=== PATIENT | female | born 1975 | race Asian ===

== ENCOUNTER 2020-02-25 06:21 | Inpatient (IN) | payer OTHER ==
[~2020-02-25] VITALS: Ht 154.9 cm; Wt 79.4 kg
[2020-02-25] VITALS (7 sets, daily range): BP systolic 125–154; BP diastolic 70–89
--- NOTE | 2020-02-25 06:40 | NUR ---
ED Nurse Note: pt walked into ED from home c/o hemoptysis since this AM, pt had forceful cough and dark red clots came out. Pt states she had uterine fibroid embolization surgery as outpt yesterday. Pt denies chest pain, denies, sob. Pt does not take blood thinners. Unknown if pt was intubated for surgery.
[2020-02-25] MEDS ORDERED: Omnipaque-300 100ml vial INJ PRN (06:45)
--- NOTE | 2020-02-25 06:52 | Emergency Room Report ---
History of Present Illness General Chief Complaint: General Complaint Source: Patient Present Illness HPI 44-year-old female postop day 1 from uterine artery embolization for bleeding fibroids sent by [employer] Dr. Jarrett for patient vomiting blood x 3 prior to arrival Patient quantifies the amount of blood as "a little". Last PO intake was this morning, yogurt. Denies chest pain, shortness of breath, nausea, diarrhea, hemoptysis, leg swelling, back pain, abdominal pain, flank pain or other symptoms The patient's symptoms were gradual onset, severity was moderate, duration since 1 day. Quality: bright red Past medical history: Denies Past surgical history: uterine artery embolization Smoking: Denies Alcohol use: Denies Drug use: Denies Review of systems: CONST: No fevers or chills, No night sweats PULMONARY: No productive cough, No shortness of breath CARDIAC: No chest pain, No palpitations GI: No vomiting, No diarrhea , No melena_or_BRBPR : No dysuria, No hematuria, No discharge NEURO: No new_focal_weakness_or_numbness, No confusion, No vision changes 14 point Review of Systems is otherwise negative except per HPI Physical Exam: GENERAL: Awake_alert_ nontoxic, no acute distress Spo2 98% on RA -normal EYES: Extraocular muscles are intact. Conjunctivae clear. Lids without swelling ENT: External nose and ear normal_in_appearance. Oropharynx clear. Head_atraumatic, Moist_oral_mucosa NECK: No JVD. No meningismus. No thyromegaly. Supple. Trachea midline RESP: Normal respiratory effort. Symmetric rise. No stridor. Clear_to _auscultation_No_rales_No_wheezes CARDIAC: Regular rate and regular rhytm. No_significant pedal edema. ABDOMEN: Soft. Nondistended. Nontender_No_rebound_or_guarding. MSK: Normal muscle tone, without rigidity. Extremities without asymmetric deformity or swelling. SKIN: Warm and dry. No visible cyanosis or pallor NEUROLOGIC: Alert, oriented x3. Motor_and_sensation_grossly_intact. No truncal ataxia. Gait_normal Psych: Normal mood and affect, normal judgment and insight - COORDINATION OF CARE Case was discussed with: Patient , Patient's Physician Any labs and imaging that were ordered were interpreted as part of the medical decision making: Critical Care Statement Organ systems at risk include: cardiac / circulatory / GI Critical care performed for 45 minutes. Time is exclusive of separately billable procedures. Time includes: direct patient care, continuous monitoring and multiple patient reassessment, coordination of patient care, review of patient's medical records, medical consultation, family consultation regarding treatment decisions and documentation of patient care. Medical Decision Making/Plan: Differential diagnosis includes upper GI bleed from bleeding peptic ulcer, bleeding duodenal ulcer, gastritis, esophageal varices, gastric varices, among others. CTA showed possible GI bleed. No PE. Abdominal exam is non tender and non peritoneal. Patient remains hemodynamically stable and sleeping. Given the possibility of a bleeding peptic ulcer, Protonix IV was immediately started. Rocephin given. Gastroenterology on-call was consulted and will evaluate the patient for endoscopy. Dr Lazo agrees with current ED management and will take patient to GI lab for endoscopy. Because the patients hemoglobin is stable, emergent transfusion was not started; however, the patient will need to be admitted for serial hemoglobin checks, and if downtrending, transfusion may be indicated at a later time. Patient is protecting their airway, no active vomiting, no need for NG tube or i ntubation at this time. The patient is currently hemodynamically stable, and stable for transfer to the floor at this time. I spoke with Dr. Seymour, and reviewed the patients presentation, workup, results, and treatment. They will admit the patient for further care and evaluation, and assume care of the patient at this time. Allergies: Coded Allergies: No Known Allergies (Unverified , 02/25/20) COVID-19 Screening Contact w/high risk pt: No Experienced COVID-19 symptoms?: No COVID-19 Testing performed GOVERNMENT INSTRUCTOR: No COVID-19 Screening: Negative COVID-19 COVID-19 Testing Source: [employer] Patient History Now: No Physical Exam Vital Signs Date Time Temp Pulse Resp B/P (MAP) Pulse Ox O2 Delivery O2 Flow Rate FiO2 02/25/20 06:23 98.1 74 20 139/70 (93) 98 Sp02 EP Interpretation: reviewed, normal Medical Decision Making Diagnostic Impression: Primary Impression: Hematemesis Additional Impression: Hypokalemia EKG Diagnostic Results Troponin ordered: Yes SILVIA Scribe Text 12-lead EKG (interpreted by me) Time: 0657 Indication: Rhythm analysis Tracing visualized and Interpreted by me. Rhythm: Normal sinus rhythm Rate: 70 bpm QTc: 373 Morphology: No_significant_ST_elevations_or_depressions, No STEMI Impression: Normal_sinus_rhythm_without_significant_abnormality CT/MRI/US Diagnostic Results CT/MRI/US Diagnostic Results : Impression CTA Chest Abd/Pel w Contrast INDICATION: Vomiting blood, history of recent uterine fibroid embolization COMPARISON: FINDINGS: Vascular: No evidence of thoracic aortic aneurysm or dissection. Normal caliber and branching anatomy of the great neck vessels. Exam is not optimized for exclusion of pulmonary embolus, but the pulmonary arteries are well-opacified and no findings to suggest acute pulmonary embolus are evident. No evidence of pulmonary arterial or right ventricular dilatation. Patent nonstenotic upper abdominal visceral vessels. Patent nonstenotic bilateral iliac arteries and common femoral arteries. No evidence of dissection or a neurysm. There is what appears to be dense liquid material within the lumen of the ascending and transverse colon. This is fairly abundant, much more abundant than would be expected from contrast extravasation from the current study. No definite active extravasation of currently injected contrast is evident. The bilateral uterine arteries are enlarged. Chest: There are bilateral atelectatic changes. No infiltrates, effusions, masses, or nodules. The heart is upper limits normal in size. No pericardial effusion. No mediastinal or hilar mass or adenopathy. No axillary or chest wall mass or adenopathy. Abdomen pelvis: Distal esophagus, stomach, duodenum are unremarkable. No small bowel distention. No free or loculated intraperitoneal gas is evident. No evidence of diverticulosis or diverticulitis. There is evidence of prior cholecystectomy. The liver, bile ducts, pancreas, sp rajani, adrenals, kidneys are unremarkable. No retroperitoneal or mesenteric mass or adenopathy. Uterus is enlarged, demonstrates multiple markedly hyperattenuating masses. A few gas bubbles are seen within the uterus. There is a 2.7 cm right ovarian cyst. A gas bubble is seen within the bladder IMPRESSION: Dense liquid material, presumably contrast, is seen within the ascending and transverse colon. This is much more abundant than would be expected from contrast extravasation from the current study. Given stated clinical history of GI bleed, this could conceivably represent contrast had extravasated into the GI tract during prior uterine fibroid embolization procedure. No evidence of active GI bleed No acute thoracic or abdominal vascular pathology Enlarged uterus with multiple hyperattenuating masses, presumably fibroids that have retained contrast from prior embolization procedure. Gas bubble within the bladder, probably indicates recent instrumentation. Last Vital Signs Date Time Temp Pulse Resp B/P (MAP) Pulse Ox O2 Delivery O2 Flow Rate FiO2 02/25/20 06:40 74 20 02/25/20 06:40 98.1 139/70 98 Disposition: ADMITTED INPATIENT Admit Decision Time: 10:00 Condition: Stable Maisha Shaffer D.O. Feb 25, 2020 06:52
[2020-02-25] MEDS ORDERED: Pantoprazole Inj IVP ONE (07:00)
--- NOTE | 2020-02-25 07:03 | NUR ---
ED Nurse Note: urine and blood sent to lab
--- NOTE | 2020-02-25 07:14 | NUR ---
HAND-OFF: Report given to ERLINDA Reardon.
[2020-02-25] MEDS ORDERED: Acetaminophen 500mg (ES) tab ORAL ONE (07:15)
[2020-02-25 07:49] LABS: APPEARANCE,URINE CLEAR; BILIRUBIN, URINE NEGATIVE (NEGATIVE); COLOR,URINE PALE YELLOW; GLUCOSE, URINE (UA) NEGATIVE (NEGATIVE); KETONES,URINE NEGATIVE (NEGATIVE); LEUKOCYTE ESTERASE ,URINE NEGATIVE (NEGATIVE); NITRITE,URINE NEGATIVE (NEGATIVE); PH,URINE 7 (4.5-8.0); PROTEIN,URINE NEGATIVE (NEGATIVE); UROBILINOGEN,URINE NORMAL MG/DL (0.0-1.0)
[2020-02-25 07:52] LABS: EOSINOPHILS % (AUTO) 0.2 % (0.0-3.0); HEMATOCRIT 37.1 % (37.0-47.0); HEMOGLOBIN 12.1 G/DL (12.0-16.0); LYMPHOCYTES % (AUTO) 24.3 % (20.0-45.0); MEAN CORPUSCULAR VOLUME 89 FL (80-99); MONOCYTES % (AUTO) 6.3 % (1.0-10.0); NEUTROPHILS % (AUTO) 68.2 % (45.0-75.0); PLATELET COUNT 321 K/UL (150-450); RED BLOOD COUNT 4.16 M/UL (4.20-5.40); RED CELL DISTRIBUTION WIDTH 12.3 % (11.6-14.8); WHITE BLOOD COUNT 11.3 K/UL (4.8-10.8)
[2020-02-25 08:00] LABS: ANION GAP 4 mmol/L (5-15); BLOOD UREA NITROGEN 6 mg/dL (7-18); CALCIUM 8.6 MG/DL (8.5-10.1); CARBON DIOXIDE 30 MMOL/L (21-32); CHLORIDE 104 MMOL/L (98-107); CREATININE 0.8 MG/DL (0.55-1.30); POTASSIUM 3.2 MMOL/L (3.5-5.1); SODIUM 138 MMOL/L (136-145)
[2020-02-25 08:09] LABS: ALANINE AMINOTRANSFERASE 30 U/L (12-78); ALBUMIN 2.8 G/DL (3.4-5.0); ALBUMIN/GLOBULIN RATIO 0.7 (1.0-2.7); ALKALINE PHOSPHATASE 92 U/L (46-116); ASPARTATE AMINO TRANSFERASE 19 U/L (15-37); BILIRUBIN,TOTAL 0.6 MG/DL (0.2-1.0)
--- NOTE | 2020-02-25 08:18 | NUR ---
ED Nurse Note: received pt from ERLINDA Brito for continuity of care. Pt on bed, awake and alert x4, no acute distress noted.
--- NOTE | 2020-02-25 08:20 | NUR ---
ED Nurse Note: Pt taken to CT on stable condition.
[2020-02-25 08:25] LABS: INR 1.2 (0.9-1.1)
--- NOTE | 2020-02-25 08:40 | NUR ---
ED Nurse Note: Pt returned from CT
--- NOTE | 2020-02-25 09:34 | Diagnostic Imaging Report ---
INDICATION: Vomiting blood, history of recent uterine fibroid embolization TECHNIQUE: IV administration nonionic contrast. Arterial phase spiral acquisitions obtained through the chest, abdomen, and pelvis Multiplanar reconstructions were generated. Total dose length product mGycm. CTDIvol(s) mGy. Radiation dose was minimized using automated exposure control COMPARISON: FINDINGS: Vascular: No evidence of thoracic aortic aneurysm or dissection. Normal caliber and branching anatomy of the great neck vessels. Exam is not optimized for exclusion of pulmonary embolus, but the pulmonary arteries are well-opacified and no findings to suggest acute pulmonary embolus are evident. No evidence of pulmonary arterial or right ventricular dilatation. Patent nonstenotic upper abdominal visceral vessels. Patent nonstenotic bilateral iliac arteries and common femoral arteries. No evidence of dissection or aneurysm. There is what appears to be dense liquid material within the lumen of the ascending and transverse colon. This is fairly abundant, much more abundant than would be expected from contrast extravasation from the current study. No definite active extravasation of currently injected contrast is evident. The bilateral uterine arteries are enlarged. Chest: There are bilateral atelectatic changes. No infiltrates, effusions, masses, or nodules. The heart is upper limits normal in size. No pericardial effusion. No mediastinal or hilar mass or adenopathy. No axillary or chest wall mass or adenopathy. Abdomen pelvis: Distal esophagus, stomach, duodenum are unremarkable. No small bowel distention. No free or loculated intraperitoneal gas is evident. No evidence of diverticulosis or diverticulitis. There is evidence of prior cholecystectomy. The liver, bile ducts, pancreas, spleen, adrenals, kidneys are unremarkable. No retroperitoneal or mesenteric mass or adenopathy. Uterus is enlarged, demonstrates multiple markedly hyperattenuating masses. A few gas bubbles are seen within the uterus. There is a 2.7 cm right ovarian cyst. A gas bubble is seen within the bladder IMPRESSION: Dense liquid material, presumably contrast, is seen within the ascending and transverse colon. This is much more abundant than would be expected from contrast extravasation from the current study. Given stated clinical history of GI bleed, this could conceivably represent contrast had extravasated into the GI tract during prior uterine fibroid embolization procedure. No evidence of active GI bleed No acute thoracic or abdominal vascular pathology Enlarged uterus with multiple hyperattenuating masses, presumably fibroids that have retained contrast from prior embolization procedure. Gas bubble within the bladder, probably indicates recent instrumentation. Findings discussed by phone with Dr. Shaffer in the emergency room at the time of interpretation The CT scanner at [facility] is accredited by the [employer] and the scans are performed using protocols designed to limit radiation exposure to as low as reasonably achievable to attain images of sufficient resolution adequate for diagnostic evaluation.
--- NOTE | 2020-02-25 10:06 | NUR ---
ED Nurse Note: Dr. Lazo at bedside.
--- NOTE | 2020-02-25 10:20 | NUR ---
ED Nurse Note: rapid covid sent to lab
--- NOTE | 2020-02-25 10:34 | General Progress Note ---
Subjective ROS Limited/Unobtainable: Yes Allergies: Coded Allergies: No Known Allergies (Unverified , 02/25/20) Objective Last 24 Hour Vital Signs Date Time Temp Pulse Resp B/P (MAP) Pulse Ox O2 Delivery O2 Flow Rate FiO2 02/25/20 06:40 74 20 02/25/20 06:40 98.1 74 20 139/70 98 02/25/20 06:23 98.1 74 20 139/70 (93) 98 Laboratory Tests 02/25/20 06:50: White Blood Count 11.3H, Red Blood Count 4.16L, Hemoglobin 12.1, Hematocrit 37.1, Mean Corpuscular Volume 89, Mean Corpuscular Hemoglobin 29.0, Mean Corpuscular Hemoglobin Concent 32.6, Red Cell Distribution Width 12.3, Platelet Count 321, Mean Platelet Volume 7.2, Neutrophils (%) (Auto) 68.2, Lymphocytes (%) (Auto) 24.3, Monocytes (%) (Auto) 6.3, Eosinophils (%) (Auto) 0.2, Basophils (%) (Auto) 1.0, Prothrombin Time 12.7H, Prothromb Time International Ratio 1.2H, Activated Partial Thromboplast Time 26, Urine Color Pale yellow, Urine Appearance Clear, Urine pH 7, Urine Specific [place] 1.005, Urine Protein Negative, Urine Glucose (UA) Negative, Urine Ketones Negative, Urine Blood 3+H, Urine Nitrite Negative, Urine Bilirubin Negative, Urine Urobilinogen Normal, Urine Leukocyte Esterase Negative, Urine RBC 0-2, Urine WBC 0-2, Urine Squamous Epithelial Cells Occasional, Urine Bacteria Occasional, Sodium Level 138, Potassium Level 3.2L, Chloride Level 104, Carbon Dioxide Level 30, Anion Gap 4L, Blood Urea Nitrogen 6L, Creatinine 0.8, Estimat Glomerular Filtration Rate > 60, Glucose Level 103, Calcium Level 8.6, Total Bilirubin 0.6, Aspartate Amino Transf (AST/SGOT) 19, Alanine Aminotransferase (ALT/SGPT) 30, Alkaline Phosphatase 92, Troponin I 0.016, Total Protein 6.8, Albumin 2.8L, Globulin 4.0, Albumin/Globulin Ratio 0.7L, Lipase 128 Height (Feet): 5 Height (Inches): 1.00 Weight (Pounds): 175 General Appearance: no apparent distress EENT: normal ENT inspection Neck: supple Cardiovascular: normal rate Respiratory/Chest: decreased breath sounds Abdomen: normal bowel sounds, non tender, soft Extremities: non-tender Assessment/Plan Assessment/Plan: hematemesis post uterine fibroid ablation CT and labs reviewed ppi fu H&H possible EGD for today Ibrahima Lazo MD Feb 25, 2020 10:34
--- NOTE | 2020-02-25 11:58 | NUR ---
ED Nurse Note: Report given to Shala COFFEY of med surg unit.
[2020-02-25] MEDS ORDERED: ABILIFY10 MG ORAL (12:04)
[2020-02-25] MEDS ORDERED: COLACE100 MG ORAL (12:04)
[2020-02-25] MEDS ORDERED: TRAMADOL HCL50 MG ORAL (12:04)
[2020-02-25] MEDS ORDERED: AUGMENTIN 875-1 EAC1 ORAL (12:04)
[2020-02-25] MEDS ORDERED: ONDANSETRON ODT8 MG ORAL (12:04)
--- NOTE | 2020-02-25 12:25 | NUR ---
NURSE NOTES: RECIEVED PT. FROM ER ACCOMPANIED BY NSG STAFF AWAKE AND ALERT V/S TAKEN AND RECORDED.MADE COMFOTABLE IN BED .CALL LIGHT WITHIN REACH @ ALL TIMES.PLAN OF CARE DISCUSSED VERBALIZES UNDERSTANDING.
--- NOTE | 2020-02-25 12:27 | NUR ---
ED Nurse Note: Pt was transferred to [facility] unit under the care of Dr. Recinos. Report was given to Shala COFFEY in MS unit. Pt was transferred on stable condition, all belongings sent with pt. Family aware of pt transfer.
--- NOTE | 2020-02-25 12:45 | NUR ---
NURSE NOTES: TO GI LAB [facility]IA [facility] FOR EGD W/ POSSIBLE BIOPSY CONSENT SIGNED.
[2020-02-25] MEDS ORDERED: NS 500ML IVPB ONE (12:52)
--- NOTE | 2020-02-25 12:58 | History and Physical ---
Jia Goss GERONTOLOGICAL NURSE PRACTITIONER 02/25/20 1258: History of Present Illness General Date patient seen: Feb 25, 2020 Time patient seen: 11:30 Reason for Hospitalization: General Complaint Present Illness HPI 44 years old female with past medical history of uterine fibroids, bipolar disorder, undergone uterine artery embolization on 02/23 Patient was vomiting snall amount of blood x3 prior to arrival. She denied black stools. She denied abdominal pain. No chest pain or shortness of breath. No bowel movement since surgery. No hemoptysis. No leg swelling. Upon evaluation vital signs were stable. Rapid COVID-19 was negative. Laboratory work-up revealed mild leukocytosis WBC 11.3 , stable hemoglobin 12.1 and hematocrit 37.1, platelet count 321 Potassium 3.2. Otherwise stable electrolytes and renal parameters. Troponin negative Urinalysis revealed +3 blood , but no evidence of urinary tract infection. CT scan of the chest revealed bilateral atelectatic changes. No infiltrates, effusion, masses or nodules. CT of the abdomen and pelvis revealed dense liquid material , presumably contrast within the ascending and transverse colon , possibly representing contrast extravasated into the GI tract during prior uterine fibroid embolization procedure. No evidence of active GI bleeding. No acute thoracic or abdominal vascular pathology. Enlarged uterus with multiply hyperattenuated masses , presumably fibroids . In emergency department patient received antiemetic , Protonix and admitted for further management to medical surgical floor. PMH: uterine fibroids, bipoalr disorder Past surgery: cholecystectomy, left ankle surgery 2 to sport injury, [place] 02/23 Family hx: mother: multiple myeloma, ; father: diabetes and heart failure- Social hx: denies smoking, ETOH abuse, illicit drug use. Works as a sales and marketing analyst in [employer] Allergy: NKDA Medications: reviewed Allergies: Coded Allergies: No Known Allergies (Unverified , 02/25/20) COVID-19 Screening Contact w/high risk pt: No Recent Travel to affected area: No Experienced COVID-19 symptoms?: No Medication History Scheduled Amoxicillin/Potassium Clav 875-125* (Augmentin 875-125 Tablet*), 1 TAB ORAL TWICE A DAY, (Reported) Aripiprazole* (Abilify*), 10 MG ORAL DAILY, (Reported) Docusate Sodium* (Colace*), 100 MG ORAL DAILY, (Reported) Scheduled PRN Ondansetron Odt* (Zofran Odt*), 8 MG ORAL Q12H PRN for Nausea & Vomiting, (Reported) Tramadol Hcl* (Ultram*), 50 MG ORAL Q6H PRN for For Pain, (Reported) Patient History Healthcare decision maker Resuscitation status Full code Advanced Directive on File Review of Systems Constitutional: Reports: no symptoms Eye: Reports: no symptoms ENT: Reports: no symptoms Respiratory: Reports: no symptoms Cardiovascular: Reports: no symptoms Gastrointestinal: Reports: see HPI Genitourinary: Reports: no symptoms Musculoskeletal: Reports: no symptoms Skin: Reports: no symptoms Psychiatric: Reports: no symptoms Neurological: Reports: no symptoms Endocrine: Reports: no symptoms Hematologic/Lymphatic: Reports: no symptoms Physical Exam General Appearance: WD/WN, no apparent distress, alert, obese - AA female Lines, tubes and drains: peripheral HEENT: normocephalic, atraumatic, anicteric, mucous membranes moist, PERRL Neck: non-tender, supple Respiratory/Chest: lungs clear, no respiratory distress, no accessory muscle use Cardiovascular/Chest: normal rate Abdomen: normal bowel sounds, soft Extremities: normal range of motion, non-tender Skin Exam: normal pigmentation, warm/dry Neurologic: volunteer assistant II-XII grossly normal, no motor/sensory deficits, alert, oriented x 3, responsive Musculoskeletal: normal muscle bulk Last 24 Hour Vital Signs Date Time Temp Pulse Resp B/P (MAP) Pulse Ox O2 Delivery O2 Flow Rate FiO2 02/25/20 07:47 98.1 02/25/20 06:40 74 20 02/25/20 06:40 98.1 74 20 139/70 98 02/25/20 06:23 98.1 74 20 139/70 (93) 98 Laboratory Tests Test 02/25/20 06:50 White Blood Count 11.3 K/UL (4.8-10.8) H Red Blood Count 4.16 M/UL (4.20-5.40) L Hemoglobin 12.1 G/DL (12.0-16.0) Hematocrit 37.1 % (37.0-47.0) Mean Corpuscular Volume 89 FL (80-99) Mean Corpuscular Hemoglobin 29.0 PG (27.0-31.0) Mean Corpuscular Hemoglobin Concent 32.6 G/DL (32.0-36.0) Red Cell Distribution Width 12.3 % (11.6-14.8) Platelet Count 321 K/UL (150-450) Mean Platelet Volume 7.2 FL (6.5-10.1) Neutrophils (%) (Auto) 68.2 % (45.0-75.0) Lymphocytes (%) (Auto) 24.3 % (20.0-45.0) Monocytes (%) (Auto) 6.3 % (1.0-10.0) Eosinophils (%) (Auto) 0.2 % (0.0-3.0) Basophils (%) (Auto) 1.0 % (0.0-2.0) Prothrombin Time 12.7 SEC (9.30-11.50) H Prothromb Time International Ratio 1.2 (0.9-1.1) H Activated Partial Thromboplast Time 26 SEC (23-33) Urine Color Pale yellow Urine Appearance Clear Urine pH 7 (4.5-8.0) Urine Specific [place] 1.005 (1.005-1.035) Urine Protein Negative (NEGATIVE) Urine Glucose (UA) Negative (NEGATIVE) Urine Ketones Negative (NEGATIVE) Urine Blood 3+ (NEGATIVE) H Urine Nitrite Negative (NEGATIVE) Urine Bilirubin Negative (NEGATIVE) Urine Urobilinogen Normal MG/DL (0.0-1.0) Urine Leukocyte Esterase Negative (NEGATIVE) Urine RBC 0-2 /HPF (0 - 2) Urine WBC 0-2 /HPF (0 - 2) Urine Squamous Epithelial Cells Occasional /LPF Urine Bacteria Occasional /HPF (NONE) Sodium Level 138 MMOL/L (136-145) Potassium Level 3.2 MMOL/L (3.5-5.1) L Chloride Level 104 MMOL/L (98-107) Carbon Dioxide Level 30 MMOL/L (21-32) Anion Gap 4 mmol/L (5-15) L Blood Urea Nitrogen 6 mg/dL (7-18) L Creatinine 0.8 MG/DL (0.55-1.30) Estimat Glomerular Filtration Rate > 60 mL/min (>60) Glucose Level 103 MG/DL (74-106) Calcium Level 8.6 MG/DL (8.5-10.1) Total Bilirubin 0.6 MG/DL (0.2-1.0) Aspartate Amino Transf (AST/SGOT) 19 U/L (15-37) Alanine Aminotransferase (ALT/SGPT) 30 U/L (12-78) Alkaline Phosphatase 92 U/L (46-116) Troponin I 0.016 ng/mL (0.000-0.056) Total Protein 6.8 G/DL (6.4-8.2) Albumin 2.8 G/DL (3.4-5.0) L Globulin 4.0 g/dL Albumin/Globulin Ratio 0.7 (1.0-2.7) L Lipase 128 U/L (73-393) Microbiology Date/Time Source Procedure Growth Status 02/25/20 10:17 Nasopharynx SARS-CoV-2 RdRp Gene Assay - Final Complete Height (Feet): 5 Height (Inches): 1.00 Weight (Pounds): 175 Medications Current Medications Medications (Trade) Dose Ordered Sig/Aniket Route PRN Reason Start Time Stop Time Status Last Admin Dose Admin Iohexol (OMNIPAQUE-300 100ml) 100 ml NOW PRN INJ Radiology Procedure 02/25/20 06:45 02/27/20 06:44 Pantoprazole (Protonix) 40 mg Q12HR IVP 02/25/20 21:00 03/26/20 20:59 Assessment/Plan Assessment/Plan: ASSESSMENT Hematemesis s/p [place] 2 uterine fibroids Leukocytosis, probably reactive Bipolar disorder PLAN OF CARE MS NPO for EGD IVF a/emetic prn GI eval PPI monitor pain management bowel regimen ambulate as tolerated resume home meds supportive care case discussed and evaluated by supervising physician Carloz Guan MD 02/25/20 0727: History of Present Illness General Reason for Hospitalization: General Complaint Present Illness Allergies: Coded Allergies: No Known Allergies (Unverified , 02/25/20) Medication History Scheduled Amoxicillin/Potassium Clav 875-125* (Augmentin 875-125 Tablet*), 1 TAB ORAL TWICE A DAY, (Reported) Aripiprazole* (Abilify*), 10 MG ORAL DAILY, (Reported) Docusate Sodium* (Colace*), 100 MG ORAL DAILY, (Reported) Scheduled PRN Ondansetron Odt* (Zofran Odt*), 8 MG ORAL Q12H PRN for Nausea & Vomiting, (Reported) Tramadol Hcl* (Ultram*), 50 MG ORAL Q6H PRN for For Pain, (Reported) Jia Goss NP Feb 25, 2020 12:58 Carloz Guan MD Feb 25, 2020 15:57
[2020-02-25] MEDS ORDERED: Meperidine 25mg/1ml Inj (FOR RIGORS ONLY) IV PRN (13:00)
[2020-02-25] MEDS ORDERED: Labetalol 5mg/ml 20ml vial IV PRN (13:00)
[2020-02-25] MEDS ORDERED: Midazolam 2mg/2ml Inj IVP PRN (13:00)
[2020-02-25] MEDS ORDERED: HYDROcodone/Acetamin 5/325 tab ORAL PRN ×2 (13:00→13:30)
[2020-02-25] MEDS ORDERED: Hydromorphone 0.5mg/0.5ml inj IVP PRN (13:00)
[2020-02-25] MEDS ORDERED: LORazepam Inj 2mg/ml 1ml IV PRN (13:00)
[2020-02-25] MEDS ORDERED: DiphenhydrAMINE 50mg/ml Inj IVP PRN (13:00)
[2020-02-25] MEDS ORDERED: oxyCODONE HCL/Acetaminophen 5/325mg ORAL PRN (13:00)
[2020-02-25] MEDS ORDERED: Atropine Sulfate 0.4mg/ml inj IVP PRN (13:00)
[2020-02-25] MEDS ORDERED: Lidocaine 1% MPF 10mg/ml 5ml ONE (13:00)
[2020-02-25] MEDS ORDERED: HYDROcodone/Acetamin 7.5/325 tab ORAL PRN (13:00)
[2020-02-25] MEDS ORDERED: Ketorolac 30mg Inj IV PRN ×2 (13:00)
[2020-02-25] MEDS ORDERED: fentaNYL 100 mcg/2 mL IV PRN (13:00)
[2020-02-25] MEDS ORDERED: LR 1000ml ONE (13:00)
[2020-02-25] MEDS ORDERED: LR 1000ml 1,000 ML IVLG SCH (13:00)
--- NOTE | 2020-02-25 13:16 | Anethesia Preoperative Eval ---
Anesthesia Pre-op PMH/ROS General Date of Evaluation: Feb 25, 2020 Time of Evaluation: 12:41 Anesthesiologist: Greta ASA Score: ASA 3 Mallampati Score Class I : Soft palate, uvula, fauces, pillars visible Class II: Soft palate, uvula, fauces visible Class III: Soft palate, base of uvula visible Class IV: Only hard plate visible Mallampati Classification: Class II Surgeon: Clifton Diagnosis: abd pain Surgical Procedure: EGD Anesthesia History: none Family History: no anesthesia problems Allergies: Coded Allergies: No Known Allergies (Unverified , 02/25/20) Medications: see eMAR Patient NPO?: Yes Past Medical History Cardiovascular: Reports: HTN Hematology/Immune: Reports: anemia Other: obesity - BMI 35 PSxH Narrative: Uterine Embolism Anesthesia Pre-op Phys. Exam Physician Exam Last Vital Signs Date Time Temp Pulse Resp B/P (MAP) Pulse Ox O2 Delivery O2 Flow Rate FiO2 02/25/20 07:47 98.1 02/25/20 06:40 74 20 02/25/20 06:40 139/70 98 Constitutional: NAD Neurologic: CN 2-12 intact Cardiovascular: RRR Respiratory: CTA Gastrointestinal: S/NT/ND Airway Exam Mallampati Score: Class II MO: limited ROM: limited Teeth: intact Anesthesia Pre-op A/P Labs Hematology Test 02/25/20 06:50 White Blood Count 11.3 K/UL (4.8-10.8) H Red Blood Count 4.16 M/UL (4.20-5.40) L Hemoglobin 12.1 G/DL (12.0-16.0) Hematocrit 37.1 % (37.0-47.0) Mean Corpuscular Volume 89 FL (80-99) Mean Corpuscular Hemoglobin 29.0 PG (27.0-31.0) Mean Corpuscular Hemoglobin Concent 32.6 G/DL (32.0-36.0) Red Cell Distribution Width 12.3 % (11.6-14.8) Platelet Count 321 K/UL (150-450) Mean Platelet Volume 7.2 FL (6.5-10.1) Neutrophils (%) (Auto) 68.2 % (45.0-75.0) Lymphocytes (%) (Auto) 24.3 % (20.0-45.0) Monocytes (%) (Auto) 6.3 % (1.0-10.0) Eosinophils (%) (Auto) 0.2 % (0.0-3.0) Basophils (%) (Auto) 1.0 % (0.0-2.0) Coagulation Test 02/25/20 06:50 Prothrombin Time 12.7 SEC (9.30-11.50) H Prothromb Time International Ratio 1.2 (0.9-1.1) H Activated Partial Thromboplast Time 26 SEC (23-33) Chemistry Test 02/25/20 06:50 Sodium Level 138 MMOL/L (136-145) Potassium Level 3.2 MMOL/L (3.5-5.1) L Chloride Level 104 MMOL/L (98-107) Carbon Dioxide Level 30 MMOL/L (21-32) Anion Gap 4 mmol/L (5-15) L Blood Urea Nitrogen 6 mg/dL (7-18) L Creatinine 0.8 MG/DL (0.55-1.30) Estimat Glomerular Filtration Rate > 60 mL/min (>60) Glucose Level 103 MG/DL (74-106) Calcium Level 8.6 MG/DL (8.5-10.1) Total Bilirubin 0.6 MG/DL (0.2-1.0) Aspartate Amino Transf (AST/SGOT) 19 U/L (15-37) Alanine Aminotransferase (ALT/SGPT) 30 U/L (12-78) Alkaline Phosphatase 92 U/L (46-116) Troponin I 0.016 ng/mL (0.000-0.056) Total Protein 6.8 G/DL (6.4-8.2) Albumin 2.8 G/DL (3.4-5.0) L Globulin 4.0 g/dL Albumin/Globulin Ratio 0.7 (1.0-2.7) L Lipase 128 U/L (73-393) Risk Assessment & Plan Assessment: ASA 3 Plan: TIVA Status Change Before Surgery: Jah Costa MD Feb 25, 2020 13:16
--- NOTE | 2020-02-25 13:17 | Immediate Post-Op Evaluation ---
Immediate Post-Op Evalulation Immediate Post-Op Evalulation Procedure: EGD Date of Evaluation: Feb 25, 2020 Time of Evaluation: 13:49 IV Fluids: 300 LR Blood Products: 0 Estimated Blood Loss: 2 Urinary Output: 0 Blood Pressure Systolic: 154 Blood Pressure Diastolic: 89 Pulse Rate: 61 Respiratory Rate: 16 O2 Sat by Pulse Oximetry: 100 Temperature (Fahrenheit): 97.2 Pain Score (1-10): 1 Nausea: No Vomiting: No Complications 0 Patient Status: awake, reacts, patent, none Hydration Status: adequate Jah Hernandes MD Feb 25, 2020 13:17
--- NOTE | 2020-02-25 13:18 | 48 Hour Post Anesthesia Eval ---
Post Anesthesia Evaluation Procedure: EGD Date of Evaluation: Feb 25, 2020 Time of Evaluation: 15:54 Blood Pressure Systolic: 153 0: 87 Pulse Rate: 62 Respiratory Rate: 18 Temperature (Fahrenheit): 98 O2 Sat by Pulse Oximetry: 100 Airway: patent Nausea: No Vomiting: No Pain Intensity: 1 Hydration Status: adequate Cardiopulmonary Status: Stable Mental Status/LOC: patient returned to baseline Follow-up Care/Observations: 0 Post-Anesthesia Complications: 0 Follow-up care needed: N/A Jah Hernandes MD Feb 25, 2020 13:18
[2020-02-25] MEDS ORDERED: Morphine Sulfate 2mg/ml Inj(IV/IM USE ONLY) IVP PRN (13:30)
--- NOTE | 2020-02-25 13:47 | Endoscopy Procedure Note ---
Endoscopy Procedure Note General Indication for Procedure: gib Operative Findings/Diagnosis: gastittis Specimen: yes Pt Tolerated Procedure Well: Yes Estimated Blood Loss: none Anesthesia Anesthesiologist: susan Anesthesia: MAC Inserted Devices Implant(s) used?: No GI Core Measures 50 yrs or older w/o bx or poly: Not Applicable 10yrs. F/U recommended: Not Applicable Ibrahima Lazo MD Feb 25, 2020 13:47
--- NOTE | 2020-02-25 14:03 | NUR ---
NURSE NOTES: RECIEVED PT. FROM GI LAB VIA [facility] ALERT AND ORIENTED.V/S TAKEN AND RECORDED.DIET SERVED .NEEDS ATTENDED.
--- NOTE | 2020-02-25 14:14 | Procedure Note ---
DATE OF PROCEDURE: 02/25/2020 SURGEON: Ibrahima Lazo MD PROCEDURE: Upper endoscopy with biopsy. ANESTHESIOLOGIST: Jah Hernandes MD. INSTRUMENT: Olympus adult flexible upper endoscope. INDICATION: Upper GI bleeding. REASON FOR PROCEDURE: The procedure, risks, benefits, and possible consequences, including hemorrhage, aspiration, perforation and infection, and alternative treatments, were explained to the patient/legal guardian by Dr. Ibrahima Lazo and the patient/legal guardian understood and accepted these risks. PROCEDURE IN DETAIL: After informed consent was obtained and the patient was adequately sedated, Olympus upper endoscope was advanced from mouth into the second portion of the duodenum and retroflexion was performed in the stomach. The patient had diffuse gastritis. Random biopsy from antrum was obtained to rule out H. pylori infection. The patient also had one focal area of the inflammation in the body of the stomach measured roughly about 1.5 cm in size. Biopsy from this area also was obtained. There was no evidence of active upper GI bleeding at this time. The patient tolerated the procedure very well without any complications. SUMMARY OF FINDINGS: 1. Gastritis, status post biopsy. 2. Focal area of inflammation in the stomach and body, status post biopsy. 3. No evidence of any active upper GI bleeding. RECOMMENDATIONS: Follow biopsy results and treat accordingly. Ibrahima Lazo M.D. DR: Adan JOB#: [id number] CC:
[2020-02-25] MEDS ORDERED: D5 1/4NS w/KCl 20mEq 1,000 ML IV SCH (14:30)
--- NOTE | 2020-02-25 16:00 | NUR ---
NURSE NOTES: DISCHARGED PT IN STABLE CONDITION .DISCHARGED INSTRUCTIONS GIVEN ,VERBALIZES UNDERSTANDING.BELONGING CHECK ,AMBULATORY.DENIES PAIN @THIS TIME.HOME VIA UBER.
[2020-02-25] MEDS ORDERED: Docusate 100mg cap ORAL SCH (18:00)
[2020-02-25] MEDS ORDERED: Pantoprazole Inj IVP SCH (21:00)
[2020-02-26] MEDS ORDERED: ARIPiprazole 10mg tab ORAL SCH (09:00)
--- NOTE | 2020-02-26 15:34 | Discharge Summary ---
Discharge Summary Discharge Summary _ DATE OF ADMISSION: 02/24/2019 DATE OF DISCHARGE: 02/24/2019 DISCHARGED BY: Dr. Guan REASON FOR ADMISSION: 44 years old female with past medical history of uterine fibroids, bipolar disorder, undergone uterine artery embolization on 02/23. Patient was vomiting small amount of blood x3 prior to arrival. She denied black stools. She denied abdominal pain. No chest pain or shortness of breath No hemoptysis Upon evaluation vital signs were stable Rapid COVID-19 was negative Laboratory work-up revealed mild leukocytosis WBC 11.3 ,stable hemoglobin 12.1 and hematocrit 27.1, platelet count 221. Potassium 3.2. Troponin negative. Stable renal parameters. Urinalysis revealed no evidence of UTI , +[address] scan of the chest revealed bilateral atelectatic changes , no infiltrates, effusion masses or nodules. CT scan of the abdomen and pelvis revealed dense liquid material , predominately contrast within the ascending and transverse colon , possibly representing contrast extravasated into the GI tract during the uterine fibroid embolization procedure. No evidence of active GI bleeding. No acute thoracic or abdominal vascular pathology. In emergency department patient received antiemetic , Protonix and admitted for further management to medical surgical floor. CONSULTANTS: GI specialist Dr. Lazo [facility]SE: Patient admitted to medical surgical floor . Patient was kept n.p.o. for EGD . Patient was provided with IV hydration. Pain management was addressed . Antiemetic were on board as needed. Patient started on PPI . Bowel regimen instituted . Patient was encouraged to ambulate as tolerated. Home medication resumed. GI evaluation was requested. Patient subsequently undergone upper endoscopy with biopsy , which revealed gastritis, status post biopsy , focal area of inflammation in the stomach and body , status post biopsy . No evidence of any active upper GI bleeding. At the time of this dictation biopsy results are still pending. Patient tolerated procedure well. Patient started on diet and was able to tolerate diet. No furtehr hematemesis, Patient clinically stabilized and was ready for discharge . Follow-up with a pathology results , Follow-up with [employer] surgeon as advised. Due to rapid and unexpected improvement in patient condition , patient was discharged in 1 day. FINAL DIAGNOSES: Hematemesis Status post uterine artery embolization 2/2 uterine fibroids Leukocytosis ,probably reactive Bipolar disorder s/p EGD Gastritis DISCHARGE MEDICATIONS: See Medication Reconciliation list. DISCHARGE INSTRUCTIONS: Patient was discharged home. Follow-up with shana as scheduled. Follow-up with pathology results I have been assigned to dictate discharge summary for this account. Jia Goss NP Feb 26, 2020 15:34
--- NOTE | 2020-02-27 11:30 | NUR ---
INSURANCE CLINICALS/DC SUMMARY/INSTRUCTIONS FAXED TO [facility] [phone]
== END 2020-02-25 16:00 | disposition home or self-care (01) | DRG 379 ==
LOC: EMR 06:54 → EDBEDREQ 10:04 → 3E 10:18
PROC: 0DB78ZX Excision of Stomach, Pylorus, Via Natural or Artificial Opening Endoscopic, Diagnostic (ICD-10-PCS; principal; 2020-02-25 13:04)
DX: K29.71 Gastritis, unspecified, with bleeding (principal); Z98.890 Other specified postprocedural states; F31.9 Bipolar disorder, unspecified
CPT/HCPCS: 36415; 71275; 74175; 80053; 81003; 83690; 84484; 85025; 85610; 85730; 86850; 86900; 86901; 94003; 94150; 96374; 96375; 99291; J2405; J8499; U0002